=== PATIENT | female | born 1985 | race African-American/Black ===

== ENCOUNTER 2018-10-13 12:36 | Emergency (ER) | payer OTHER ==
[2018-10-13 12:54] VITALS: BP 160/90; PULSE 65; TEMP 98.2; BMI 60.0
[2018-10-13] MEDS ORDERED: DEXAMETHASONE LIQUID 0.5 MG/5 ML 240 ML BULK BOTTLE PO ONE (14:22)
--- NOTE | 2018-10-13 14:22 | PDOC ---
History of Present Illness - General Chief Complaint: Cold Symptoms Stated Complaint: DIFFICULTY BREATHING Time Seen by Provider: 10/13/18 13:52 History Source: Patient Exam Limitations: No Limitations - History of Present Illness Initial Comments: 10/13/18 17:12 Patient is a 32-year-old female past medical history of sleep apnea who presents to the ER today with cough, chest tightness, and difficulty taking a deep breath. Patient states she started with a cough approximately 3 days ago. She states that her children are home with similar symptoms. She states that she finds it hard to take a deep breath. He states that she feels chest tightness when she tries to breathe. Denies fevers, chills, chest pain, nausea, vomiting and diarrhea. Past History - Travel Traveled outside of the country in the last 30 days: No Close contact w/someone who was outside of country & ill: No - Past Medical History Allergies/Adverse Reactions: Allergies Allergy/AdvReac Type Severity Reaction Status Date / Time Penicillins Allergy Unknown Verified 10/13/18 12:52 Home Medications: Ambulatory Orders Albuterol 0.083% Nebulizer Didi [Ventolin 0.083% Nebulizer Soln -] 1 neb NEB Q4H #20 vial 10/13/18 predniSONE ORAL SOLUTION [Deltasone Oral Solution 5 MG/5 ML -] 40 mg PO DAILY # 120 ml 10/13/18 COPD: No CHF: No - Suicide/Smoking/Psychosocial Hx Smoking History: Never smoked Have you smoked in the past 12 months: No Information on smoking cessation initiated: No Hx Alcohol Use: No Drug/Substance Use Hx: No Review of Systems - Review of Systems Able to Perform ROS?: Yes Comments:: 10/13/18 16:15 CONSTITUTIONAL: Absent: fever, chills, diaphoresis, generalized weakness, malaise, loss of appetite HEENT: Absent: rhinorrhea, nasal congestion, throat pain, throat swelling, difficulty swallowing, mouth swelling, ear pain, eye pain, visual Changes CARDIOVASCULAR: Absent: chest pain, loss of consciousness, palpitations, irregular heart rate, peripheral edema RESPIRATORY: Present: cough, unable to take a deep breath, chest tightness Absent: cough, shortness of breath, dyspnea with exertion, orthopnea, wheezing, stridor, hemoptysis GASTROINTESTINAL: Absent: abdominal pain, abdominal distension, nausea, vomiting, diarrhea, constipation, melena, hematochezia GENITOURINARY: Absent: dysuria, frequency, urgency, hesitancy, hematuria, flank pain, genital pain MUSCULOSKELETAL: Absent: myalgia, arthralgia, joint swelling SKIN: Absent: rash, itching, pallor HEMATOLOGIC/IMMUNOLOGIC: Absent: easy bleeding, easy bruising, lymphadenopathy, frequent infections ENDOCRINE: Absent: unexplained weight gain, unexplained weight loss, heat intolerance, cold intolerance NEUROLOGIC: Absent: headache, focal weakness or paresthesias, dizziness, unsteady gait, seizure, mental status changes, bladder or bowel incontinence PSYCHIATRIC: Absent: anxiety, depression, suicidal or homicidal ideation, hallucinations. Is the patient limited Hungarian proficient: No *Physical Exam - Vital Signs Last Vital Signs Temp Pulse Resp BP Pulse Ox 98.2 F 65 18 160/90 100 10/13/18 12:52 10/13/18 12:52 10/13/18 12:52 10/13/18 12:52 10/13/18 12:52 - Physical Exam Comments: 10/13/18 16:16 GENERAL: Well developed, well nourished. Awake and alert. No acute distress. HEENT: Normocephalic, atraumatic. PERRLA, EOMI. No conjunctival pallor. Sclera are non- icteric. Moist mucous membranes. Oropharynx is clear. NECK: Supple. Full ROM. No JVD. Carotid pulses 2+ and symmetric, without bruits. No thyromegaly. No lymphadenopathy. CARDIOVASCULAR: Regular rate and rhythm. No murmurs, rubs, or gallops. Distal pulses are 2+ and symmetric. PULMONARY: No evidence of respiratory distress. Lungs with expiratory wheezing b/l. No rales or rhonchi. ABDOMINAL: Soft. Non-tender. Non-distended. No rebound or guarding. No organomegaly. Normoactive bowel sounds. MUSCULOSKELETAL Normal range of motion at all joints. No bony deformities or tenderness. No CVA tenderness. EXTREMITIES: No cyanosis. No clubbing. No edema. No calf tenderness. SKIN: Warm and dry. Normal capillary refill. No rashes. No jaundice. NEUROLOGICAL: Alert, awake, appropriate. Cranial nerves 2-12 intact. No deficits to light touch and temperature in face, upper extremities and lower extremities. No motor deficits in the in face, upper extremities and lower extremities. Normoreflexic in the upper and lower extremities. Normal speech. Toes are down- going bilaterally. Gait is normal without ataxia. PSYCHIATRIC: Cooperative. Good eye contact. Appropriate mood and affect. Moderate Sedation - Procedure Monitoring Vital Signs: Procedure Monitoring Vital Signs Temperature 98.2 F 10/13/18 12:52 Pulse Rate 65 10/13/18 12:52 Respiratory Rate 18 10/13/18 12:52 Blood Pressure 160/90 10/13/18 12:52 O2 Sat by Pulse Oximetry (%) 100 10/13/18 12:52 Medical Decision Making - Medical Decision Making 10/13/18 16:14 Patient is a 32-year-old female with sleep apnea who presents to the ER for 3 days of cold-like symptoms with associated chest tightness. On exam patient with expiratory wheezing bilaterally. Patient given prednisone and DuoNeb's. Patient reports relief of symptoms and resolution of her chest tightness. Repeat lung sounds are clear bilaterally. Patient states she feels much better and would like to go home. We'll prescribe albuterol and prednisone as an outpatient. Most likely viral illness causing wheezing. Discharge home I discussed the physical exam findings, ancillary test results and final diagnoses with the patient. I answered all of the patient's questions. The patient was satisfied with the care received and felt comfortable with the discharge plan and treatment plan. The Patient agrees to follow up with the primary care physician/specialist within 24-72 hours. Return precautions were given. *DC/Admit/Observation/Transfer Diagnosis at time of Disposition: Bronchitis - Discharge Dispostion Disposition: HOME Condition at time of disposition: Stable Decision to Admit order: No - Prescriptions Prescriptions: Albuterol 0.083% Nebulizer Didi [Ventolin 0.083% Nebulizer Soln -] 1 neb NEB Q4H #20 vial predniSONE ORAL SOLUTION [Deltasone Oral Solution 5 MG/5 ML -] 40 mg PO DAILY # 120 ml - Referrals Referrals: Dejan Clemente MD [Primary Care Provider] - - Patient Instructions Printed Discharge Instructions: DI for Acute Bronchitis Additional Instructions: You have bronchitis. Please take the albuterol nebulizer every 4 hours until your symptoms resolve Take the prednisone as prescribed starting tomorrow Follow up with your primary care doctor in 1-2 days Return to the ED for chest pain, difficulty breathing, shortness of breath, or if you have any changes in your symptoms - Post Discharge Activity Forms/Work/School Notes: Back to Work
[2018-10-13] MEDS ORDERED: ALBUTEROL SO4 2.5/IPRATROPIUM 0.5 INH SOL 3 ML VIAL.NEB. NEB ONE (14:27)
[2018-10-13] MEDS ORDERED: DEXAMETHASONE SOD PHOSPHATE 10 MG/1 ML VIAL ONE (14:27)
[2018-10-13] MEDS: ALBUTEROL SO4 2.5/IPRATROPIUM 0.5 INH SOL 3 ML VIAL.NEB. NEB SCH ×2 (14:35→15:16)
== END 2018-10-13 16:02 | disposition home or self-care (01) ==
LOC: JERFT 12:36
PROC: 3E0F7GC Introduction of Other Therapeutic Substance into Respiratory Tract, Via Natural or Artificial Opening (ICD-10-PCS; principal; 2018-10-13)
DX: J40 Bronchitis, not specified as acute or chronic (principal); G47.30 Sleep apnea, unspecified
CPT/HCPCS: 84703; 99281-25

== ENCOUNTER 2018-11-21 15:54 | Emergency (ER) | payer OTHER ==
[2018-11-21 16:16] VITALS: BP 119/68; PULSE 89; TEMP 98.1; BMI 54.1
--- NOTE | 2018-11-21 16:31 | PDOC ---
History of Present Illness - General Chief Complaint: Pain Stated Complaint: LFT SIDED BACK PAIN Time Seen by Provider: 11/21/18 16:21 - History of Present Illness Initial Comments: 11/21/18 16:28 33-year-old female without systemic symptoms or comorbidities presents for evaluation of atraumatic left-sided back pain 4 days without radiation or urinary symptoms no systemic symptoms either. Past History - Past Medical History Allergies/Adverse Reactions: Allergies Allergy/AdvReac Type Severity Reaction Status Date / Time Penicillins Allergy Unknown Verified 10/13/18 12:52 Home Medications: Ambulatory Orders Cyclobenzaprine HCl [Flexeril 10 mg] 10 mg PO HS PRN #10 tablet 11/21/18 Ibuprofen [Motrin -] 600 mg PO TID #30 tablet 11/21/18 COPD: No CHF: No Other medical history: morbid obesity,sleep apnea - Surgical History Cholecystectomy: No Lung Surgery: No - Immunization History Immunization Up to Date: No - Suicide/Smoking/Psychosocial Hx Smoking History: Never smoked Have you smoked in the past 12 months: No Information on smoking cessation initiated: No Hx Alcohol Use: No Drug/Substance Use Hx: No Review of Systems - Review of Systems Constitutional: No: Fever ABD/GI: No: Constipated, Diarrhea, Nausea, Vomiting : No: Burning, Dysuria, Flank Pain Musculoskeletal: Yes: Back Pain *Physical Exam - Vital Signs Last Vital Signs Temp Pulse Resp BP Pulse Ox 98.1 F 89 16 119/68 98 11/21/18 16:12 11/21/18 16:12 11/21/18 16:12 11/21/18 16:12 11/21/18 16:12 - Physical Exam Comments: 11/21/18 16:29 Lumbar spine skin color and temperature are normal. Range of motion is full. She has mild tenderness about the paralumbar thoracic musculature on the left negative on the right. 5 out of 5 strength in bilateral upper and lower extremities without gross sensorimotor deficits. Thighs and calves are soft and nontender. Of note she is morbidly obese her pain is reproduced with movement Moderate Sedation - Procedure Monitoring Vital Signs: Procedure Monitoring Vital Signs Temperature 98.1 F 11/21/18 16:12 Pulse Rate 89 11/21/18 16:12 Respiratory Rate 16 11/21/18 16:12 Blood Pressure 119/68 11/21/18 16:12 O2 Sat by Pulse Oximetry (%) 98 11/21/18 16:12 *DC/Admit/Observation/Transfer Diagnosis at time of Disposition: Back strain - Discharge Dispostion Disposition: HOME Condition at time of disposition: Stable Decision to Admit order: No - Referrals Referrals: Rodney Dang MD [Staff Physician] - - Patient Instructions Printed Discharge Instructions: Low Back Pain, DI for Low Back Pain, DI for Thoracic Back Pain Additional Instructions: Please take the anti-inflammatory one tablet 3 times a day with food. Discontinue the medication if it bothers her stomach. The muscle relaxers one tablet before bedtime and will make you sleepy. Follow-up with spine surgery in 2-3 days for further evaluation and treatment options. Return to the emergency room for worsening symptoms. - Post Discharge Activity
== END 2018-11-21 16:41 | disposition home or self-care (01) ==
LOC: JERFT 15:54
DX: S39.012A Strain of muscle, fascia and tendon of lower back, initial encounter (principal); X58.XXXA Exposure to other specified factors, initial encounter; Y93.89 Activity, other specified; Y92.89 Other specified places as the place of occurrence of the external cause; Y99.8 Other external cause status; E66.01 Morbid (severe) obesity due to excess calories; Z68.43 Body mass index [BMI] 50.0-59.9, adult; G47.39 Other sleep apnea
CPT/HCPCS: 99281-25